=== PATIENT | male | born 1950 | race Asian ===

== ENCOUNTER 2018-02-04 12:08 | Day surgery (SDC) | payer MEDICARE, OTHER ==
[~2018-02-04] VITALS: Ht 170.2 cm; Wt 105.7 kg
[2018-02-04] MEDS ORDERED: LACTATED RINGERS 1,000 ML IV SCH ×2 (12:43→18:30)
[2018-02-04] MEDS ORDERED: AMLO10TA2 PO (12:49)
[2018-02-04] MEDS ORDERED: FINESTERIDE (12:49)
[2018-02-04] MEDS ORDERED: PIOG30TA3 PO (12:49)
[2018-02-04] MEDS ORDERED: HYDROCHLOROTHIAZIDE (12:49)
[2018-02-04] MEDS ORDERED: INSU100I13 SQ (12:49)
[2018-02-04] MEDS ORDERED: METF500T4 PO (12:49)
[2018-02-04] MEDS ORDERED: ATOR-2 PO (12:49)
[2018-02-04] MEDS ORDERED: ALLO300T PO (12:49)
[2018-02-04] MEDS ORDERED: TAMS0.4C2 PO (12:49)
[2018-02-04] MEDS ORDERED: FENTANYL PF 250 MCG/5ML ONE (12:58)
[2018-02-04] MEDS ORDERED: PROPOFOL 10 MG/ML, 20ML ONE (12:58)
[2018-02-04] MEDS ORDERED: MIDAZOLAM 1 MG/ML, 2ML ONE (12:58)
[2018-02-04] MEDS ORDERED: GLYCOPYRROLATE 0.4 MG/2 ML, 2ML ONE (13:00)
[2018-02-04] MEDS ORDERED: ROCURONIUM 10MG/ML,5ML ONE (13:00)
[2018-02-04] MEDS ORDERED: NEOSTIGMINE 1 MG/ML, 10ML ONE ×2 (13:00→14:04)
[2018-02-04 13:02] VITALS: BP 146/80
[2018-02-04 13:41] LABS: ALANINE AMINOTRANSFERASE 30 U/L (12-78); ANION GAP 10 mmol/L (5-15); CALCIUM 9.9 mg/dL (8.5-10.1); CHLORIDE 105 mmol/L (98-107); CREATININE 1.24 mg/dL (0.7-1.3)
[2018-02-04 13:42] LABS: ALKALINE PHOSPHATASE 68 U/L (45-117); BILIRUBIN,TOTAL 0.6 mg/dL (0.2-1.0); TOTAL PROTEIN 8.3 g/dL (6.4-8.2)
[2018-02-04] MEDS ORDERED: EPINEPHRINE 1 MG/ML, 1ML ONE (13:48)
[2018-02-04] MEDS ORDERED: BUPIVACAINE/PF 0.5% ONE (13:48)
[2018-02-04] MEDS ORDERED: MEPERIDINE/PF 25MG/0.5ML IVPush PRN (14:00)
[2018-02-04] MEDS ORDERED: LABETALOL 5MG/ML, 20ML IV PRN (14:00)
[2018-02-04] MEDS ORDERED: ONDANSETRON 2MG/ML, 2ML IVPush PRN ×2 (14:00→18:30)
[2018-02-04] MEDS ORDERED: ACETAMINOPHEN 325 MG TABLET PO PRN (14:00)
[2018-02-04] MEDS ORDERED: OXYcodone 5 MG/5 ML ORAL.SOL UDC PO PRN (14:00)
[2018-02-04] MEDS ORDERED: PROMETHAZINE 25 MG/ML, 1ML IV PRN (14:00)
[2018-02-04] MEDS ORDERED: PROMETHAZINE 12.5 MG SUPP PR PRN (14:00)
[2018-02-04] MEDS ORDERED: morphine SULFATE 10 MG/ML, 1ML IV PRN (14:00)
[2018-02-04] MEDS ORDERED: FENTANYL PF 100 MCG/2ML IV PRN (14:00)
[2018-02-04] MEDS ORDERED: HYDROmorphone 1 MG/ML, 1ML IV PRN (14:00)
[2018-02-04] MEDS ORDERED: hydrALAzine 20 MG/ML, 1ML ONE ×3 (14:04→15:40)
[2018-02-04] MEDS ORDERED: GLYCOPYRROLATE 0.2MG/1ML, 5ML ONE (14:04)
[2018-02-04] MEDS ORDERED: CEFAZOLIN 1,000 MG ONE (14:04)
[2018-02-04] MEDS ORDERED: PHENYLEPHRINE 10 MG/ML ONE (14:04)
[2018-02-04] MEDS ORDERED: BUPIVACAINE/PF 0.5% INFIL ONE ×2 (14:52)
[2018-02-04] MEDS: hydrALAzine 20 MG/ML, 1ML IV PRN ×2 (15:40→16:05)
[2018-02-04] MEDS ORDERED: MEPERIDINE/PF 25MG/0.5ML ONE (15:55)
[2018-02-04 17:05] VITALS: BP 161/75
[2018-02-04] MEDS ORDERED: hydrALAzine 20 MG/ML, 1ML IV PRN (17:30)
[2018-02-04 17:40] VITALS: BP 190/86
[2018-02-04] MEDS ORDERED: OXYcodone/APAP 5/325MG TABLET PO PRN (18:30)
[2018-02-04] MEDS ORDERED: MORPHINE SULFATE 4 MG/ML, 1ML IVPush PRN (18:30)
[2018-02-04] MEDS ORDERED: OXYC-302 PO (18:32)
[2018-02-04 18:55] VITALS: BP 136/66
[2018-02-04] MEDS ORDERED: TAMSULOSIN 0.4 MG CAP.ER.24H PO SCH (21:00)
[2018-02-05] MEDS ORDERED: FINASTERIDE 5 MG TABLET PO SCH (09:00)
[2018-02-05] MEDS ORDERED: PIOGLITAZONE 15 MG TABLET PO SCH (09:00)
[2018-02-05] MEDS ORDERED: AMLODIPINE 5 MG TABLET PO SCH (09:00)
[2018-02-05] MEDS ORDERED: INSULIN GLARGINE 100 UNITS/ML, PEN SQ-INSULIN SCH (09:00)
[2018-02-05] MEDS ORDERED: HYDROCHLOROTHIAZIDE 25 MG TABLET PO SCH (09:00)
[2018-02-05] MEDS ORDERED: ALLOPURINOL 300 MG TABLET PO SCH (09:00)
== END 2018-02-04 19:25 | disposition home or self-care (01) ==
LOC: OUT 12:08 → 4NOR 16:56 → OUT 19:25
PROVIDERS: ATTEND Surgery
DX: K42.9 Umbilical hernia without obstruction or gangrene (principal); M79.89 Other specified soft tissue disorders; E11.9 Type 2 diabetes mellitus without complications; I10 Essential (primary) hypertension; N40.0 Benign prostatic hyperplasia without lower urinary tract symptoms; E78.5 Hyperlipidemia, unspecified; E78.4 Other hyperlipidemia; M10.9 Gout, unspecified; E66.9 Obesity, unspecified; Z79.899 Other long term (current) drug therapy; Z79.4 Long term (current) use of insulin; Z68.36 Body mass index [BMI] 36.0-36.9, adult
CPT/HCPCS: 24075; 36415; 49585; 80053; 88304; J0171; J0360; J0690; J2175; J2250; J2370; J2704; J2710; J3010; J3490; J7120; 88307

== ENCOUNTER 2018-02-17 18:24 | Emergency (ER) | payer MEDICARE ==
[~2018-02-17] VITALS: Ht 170.2 cm; Wt 106.0 kg
[~2018-02-17 18:24] MED LIST: ALLO300T PO; AMLO10TA2 PO; ATOR-2 PO; FINESTERIDE; HYDROCHLOROTHIAZIDE; INSU100I13 SQ; METF500T4 PO; OXYC-302 PO; PIOG30TA3 PO; TAMS0.4C2 PO
[2018-02-17 19:14] LABS: BASOPHILS # (AUTO) 0.12 x10^3/uL (0-0.1); BASOPHILS % (AUTO) 1 % (0-1); EOSINOPHILS # (AUTO) 0.67 x10^3/uL (0-0.4); EOSINOPHILS % (AUTO) 6 % (1-7); LYMPHOCYTES # (AUTO) 4.61 x10^3/uL (1-3.4); LYMPHOCYTES % (AUTO) 38 % (22-44); MD NO; MEAN CORPUSCULAR HEMOGLOBIN 28.8 pg (27.5-34.5); MEAN CORPUSCULAR HGB CONC 33.3 g/dL (33.2-36.2); MEAN CORPUSCULAR VOLUME 86.5 fL (81-97); MEAN PLATELET VOLUME 8.1 fL (7.4-10.4); MONOCYTES # (AUTO) 0.61 x10^3/uL (0.2-0.8); MONOCYTES % (AUTO) 5 % (2-9); NEUTROPHILS # (AUTO) 6.13 x10^3/uL (1.8-6.8); NEUTROPHILS % (AUTO) 51 % (42-75); PLATELET COUNT 271 x10^3/uL (130-400); RED BLOOD COUNT 5.09 x10^6/uL (4.38-5.82); RED CELL DISTRIBUTION WIDTH 15.8 % (9.4-14.8)
[2018-02-17 19:22] LABS: ALBUMIN 3.8 g/dL (3.4-5.0); ANION GAP 8 mmol/L (5-15); CALCIUM 9.6 mg/dL (8.5-10.1); CHLORIDE 105 mmol/L (98-107); CREATININE 1.14 mg/dL (0.7-1.3)
[2018-02-17 19:49] VITALS: BP 144/69
== END 2018-02-17 20:16 | disposition home or self-care (01) ==
LOC: ED 18:47
DX: R10.2 Pelvic and perineal pain (principal); I10 Essential (primary) hypertension; E11.9 Type 2 diabetes mellitus without complications; N40.1 Benign prostatic hyperplasia with lower urinary tract symptoms; Z98.890 Other specified postprocedural states
CPT/HCPCS: 36415; 80048; 82040; 85025; 99284

== ENCOUNTER 2018-03-18 13:23 | Inpatient (IN) | payer MEDICARE ==
[~2018-03-18] VITALS: Ht 170.2 cm; Wt 103.5 kg
[~2018-03-18 13:23] MED LIST changes: +AMLO1CAP15 PO; +ASPI-496 PO; +ERGO500017 PO; +FINA5TAB4 PO; +HYDR25TA6 PO
[2018-03-18] MEDS ORDERED: LACTATED RINGERS 1,000 ML IV SCH (14:03)
[2018-03-18] MEDS ORDERED: LIDOCAINE-MPF 1%, 2ML ONE (14:11)
[2018-03-18] MEDS ORDERED: ACETAMINOPHEN 500 MG TABLET PO ONE (14:30)
[2018-03-18] MEDS ORDERED: LIDOCAINE-MPF 1%, 2ML INFIL ONE (14:30)
[2018-03-18] MEDS ORDERED: OXYcodone IR 5MG TABLET PO ONE (14:30)
[2018-03-18] MEDS ORDERED: ONDANSETRON ODT 8 MG PO ONE (14:30)
[2018-03-18] MEDS ORDERED: GABAPENTIN 300 MG CAPSULE PO ONE (14:30)
[2018-03-18] MEDS ORDERED: PHENYLEPHRINE 10 MG/ML ONE (15:59)
[2018-03-18] MEDS ORDERED: FENTANYL PF 100 MCG/2ML ONE ×3 (16:26→17:19)
[2018-03-18] MEDS ORDERED: DEXAMETHASONE 4 MG/ML, 1ML ONE (17:10)
[2018-03-18] MEDS ORDERED: ONDANSETRON 2MG/ML, 2ML ONE (17:10)
[2018-03-18] MEDS ORDERED: CEFAZOLIN 1,000 MG ONE (17:10)
[2018-03-18] MEDS ORDERED: PROPOFOL 10 MG/ML, 20ML ONE (17:10)
[2018-03-18] MEDS ORDERED: LIDOCAINE 2%, 10ML ONE (17:11)
[2018-03-18] MEDS ORDERED: EPHEDRINE 50 MG/ML, 1ML ONE (17:15)
[2018-03-18] MEDS ORDERED: OXYcodone 5 MG/5 ML ORAL.SOL UDC ONE (18:17)
[2018-03-18] MEDS ORDERED: OXYcodone 5 MG/5 ML ORAL.SOL UDC PO PRN (18:30)
[2018-03-18] MEDS ORDERED: LABETALOL 5MG/ML, 20ML IV PRN (18:30)
[2018-03-18] MEDS ORDERED: ALBUTEROL/IPRATROPIUM 2.5MG/0.5MG, 3 ML NPPB PRN (18:30)
[2018-03-18] MEDS ORDERED: FENTANYL PF 100 MCG/2ML IV PRN (18:30)
[2018-03-18] MEDS ORDERED: MEPERIDINE/PF 25MG/0.5ML IVPush PRN (18:30)
[2018-03-18] MEDS ORDERED: MIDAZOLAM 1 MG/ML, 2ML IV PRN (18:30)
[2018-03-18] MEDS ORDERED: MORPHINE SULFATE 4 MG/ML, 1ML IVPush PRN (18:30)
[2018-03-18] MEDS ORDERED: PROMETHAZINE 25 MG/ML, 1ML IV PRN (18:30)
[2018-03-18] MEDS ORDERED: hydrALAzine 20 MG/ML, 1ML IV PRN (18:30)
[2018-03-18] MEDS ORDERED: MORPHINE SULFATE 4 MG/ML, 1ML IV PRN (19:00)
[2018-03-18] MEDS ORDERED: OPIUM/BELLADONNA SUPP.RECT 16.2-30 MG PR PRN (19:00)
[2018-03-18] MEDS ORDERED: OXYcodone IR 5MG TABLET PO PRN (19:00)
[2018-03-18] MEDS ORDERED: ONDANSETRON 2MG/ML, 2ML IV PRN (19:00)
[2018-03-18] MEDS ORDERED: morphine SULFATE 10 MG/ML, 1ML IV PRN (19:00)
[2018-03-18] MEDS: [UNRECOGNIZED DRUG - REMARK] MC SCH (19:30)
[2018-03-18] MEDS: SODIUM CHLORIDE 0.9% 1,000 ML IV SCH (19:53)
[2018-03-18] MEDS: ACETAMINOPHEN 325 MG TABLET PO SCH (19:54)
[2018-03-18 20:09] VITALS: BP 131/63
[2018-03-18] MEDS: INSULIN REGULAR, HUMAN 100 UNITS/ML, 3ML MEDIUM DOSE SS SQ-INSULIN SCH (21:00)
[2018-03-18] MEDS: DOCUSATE 100 MG CAPSULE PO SCH (21:17)
[2018-03-19 00:05] VITALS: BP 122/62
[2018-03-19] MEDS: ACETAMINOPHEN 325 MG TABLET PO SCH ×3 (01:58→15:36)
[2018-03-19 03:27] VITALS: BP 122/59
[2018-03-19] MEDS: [UNRECOGNIZED DRUG - REMARK] MC SCH ×2 (03:30→11:30)
[2018-03-19] MEDS: CIPROFLOXACIN/PMX 400MG/200ML 200 ML IVPB SCH ×2 (03:55→16:04)
[2018-03-19] MEDS: SODIUM CHLORIDE 0.9% 1,000 ML IV SCH ×2 (06:26→15:00)
[2018-03-19] MEDS: INSULIN REGULAR, HUMAN 100 UNITS/ML, 3ML MEDIUM DOSE SS SQ-INSULIN SCH ×3 (07:00→16:00)
[2018-03-19 08:35] VITALS: BP 128/71
[2018-03-19] MEDS: DOCUSATE 100 MG CAPSULE PO SCH (08:54)
[2018-03-19] MEDS ORDERED: FINASTERIDE 5 MG TABLET PO SCH (09:00)
[2018-03-19] MEDS ORDERED: BENAZEPRIL 20 MG TABLET PO SCH (09:00)
[2018-03-19] MEDS ORDERED: INSULIN GLARGINE 100 UNITS/ML, PEN SQ-INSULIN SCH (09:00)
[2018-03-19] MEDS ORDERED: HYDROCHLOROTHIAZIDE 25 MG TABLET PO SCH (09:00)
[2018-03-19] MEDS ORDERED: ALLOPURINOL 300 MG TABLET PO SCH (09:00)
[2018-03-19] MEDS ORDERED: TAMSULOSIN 0.4 MG CAP.ER.24H PO SCH (09:00)
[2018-03-19] MEDS ORDERED: POLYETHYLENE GLYCOL 17 GM PACKET PO SCH (09:00)
[2018-03-19] MEDS ORDERED: AMLODIPINE 5 MG TABLET PO SCH (09:00)
[2018-03-19 15:16] VITALS: BP 116/58
[2018-03-24] MEDS ORDERED: ERGOCALCIFEROL 50,000 UNIT CAPSULE PO SCH (09:00)
== END 2018-03-19 17:58 | disposition home or self-care (01) | DRG 713 ==
LOC: OR 13:23 → 4NOR 18:44 → OR 18:47 → 4NOR 18:47
PROVIDERS: ADMIT Student in an Organized Health Care Education/Training Program; ATTEND Student in an Organized Health Care Education/Training Program
PROC: 0VB08ZZ Excision of Prostate, Via Natural or Artificial Opening Endoscopic (ICD-10-PCS; principal; 2018-03-18 15:30)
DX: N40.1 Benign prostatic hyperplasia with lower urinary tract symptoms (principal); E44.1 Mild protein-calorie malnutrition; N32.0 Bladder-neck obstruction; R33.8 Other retention of urine; R31.0 Gross hematuria
CPT/HCPCS: 82962; 88305; J0690; J0744; J1100; J1815; J2405; J2704; J3010; J3490; Q0162; J2370; J7030; J7120

== ENCOUNTER 2018-03-20 22:51 | Emergency (ER) | payer MEDICARE ==
[~2018-03-20] VITALS: Ht 170.2 cm; Wt 105.0 kg
[2018-03-21 01:20] VITALS: BP 125/72
== END 2018-03-21 01:23 | disposition home or self-care (01) ==
LOC: ED 23:59
DX: N40.1 Benign prostatic hyperplasia with lower urinary tract symptoms (principal); R33.8 Other retention of urine; T83.9XXA Unspecified complication of genitourinary prosthetic device, implant and graft, initial encounter; Y83.9 Surgical procedure, unspecified as the cause of abnormal reaction of the patient, or of later complication, without mention of misadventure at the time of the procedure; E11.9 Type 2 diabetes mellitus without complications; I10 Essential (primary) hypertension; Y92.89 Other specified places as the place of occurrence of the external cause
CPT/HCPCS: 99284